=== PATIENT | female | born 1975 | race Two or more races ===

== ENCOUNTER 2016-11-15 22:51 | Emergency (ER) | payer OTHER ==
[~2016-11-15] VITALS: Ht 172.7 cm; Wt 86.2 kg
[2016-11-15 23:47] LABS: Urine Color Yellow (Yellow); Urine Glucose Normal (Normal); Urine Hyaline Cast MANY /lpf (0 - 2); Urine Ketone TRACE (Negative); Urine Mucus MODERATE (None Seen); Urine Nitrite Negative (Negative); Urine RBC 5 /hpf (0 - 4); Urine Squamous Epithelial Cell FEW /hpf (<5); Urine pH 5.5 (5.0-8.0)
[2016-11-15 23:49] LABS: Urine Blood 1+ /uL (Negative)
[2016-11-15 23:54] LABS: Urine Bilirubin 1+ (Negative)
[2016-11-16 04:44] VITALS: BP 138/80
[2016-11-16] MEDS ORDERED: KETOROLAC TROMETH 30 MG/ML 1ML VIAL IV ONE (05:15)
[2016-11-16] MEDS ORDERED: CLINDAMYCIN 900MG IV 50 ML IV ONE (05:15)
== END 2016-11-16 06:56 | disposition home or self-care (01) ==
LOC: ER 22:59
DX: L03.114 Cellulitis of left upper limb (principal); F17.210 Nicotine dependence, cigarettes, uncomplicated; F12.10 Cannabis abuse, uncomplicated; F15.10 Other stimulant abuse, uncomplicated; Z59.0 Homelessness
CPT/HCPCS: 73080; 96361; 96374; 99285; J1885; J3490

== ENCOUNTER 2016-11-17 13:37 | Emergency (ER) | payer OTHER ==
[~2016-11-17] VITALS: Ht 172.7 cm; Wt 86.2 kg
[2016-11-17] MEDS ORDERED: SODIUM CHLORIDE 0.9% 1,000 ML IV ONE ×2 (13:39→15:34)
[2016-11-17] MEDS ORDERED: LORazepam 2MG/ML-1ML VIAL IV ONE (13:45)
[2016-11-17 13:55] VITALS: BP 136/92
== END 2016-11-17 15:50 | disposition left against medical advice (07) ==
LOC: ER 13:37 → EDBD 13:37 → ER 15:50
DX: R07.9 Chest pain, unspecified (principal); F41.9 Anxiety disorder, unspecified; F17.210 Nicotine dependence, cigarettes, uncomplicated; F12.10 Cannabis abuse, uncomplicated; F15.10 Other stimulant abuse, uncomplicated; Z59.0 Homelessness; R00.2 Palpitations
CPT/HCPCS: 93005